=== PATIENT | female | born 1965 | race Caucasian/White ===

== ENCOUNTER 2017-09-03 15:48 | Emergency (ER) | payer BC ==
[~2017-09-03] VITALS: Ht 167.6 cm; Wt 63.5 kg
[2017-09-03 17:33] LABS: BASOPHILS % (AUTO) 0.5 % (0.0-2.0); EOSINOPHILS # (AUTO) 0.1 K/uL (0.0-0.7); HEMATOCRIT 37.2 % (31.2-41.9); HEMOGLOBIN 12.8 g/dL (10.9-14.3); LYMPHOCYTES # (AUTO) 1.4 K/uL (20.0-40.0); LYMPHOCYTES % (AUTO) 17.7 % (20.5-51.5); MEAN CORPUSCULAR HEMOGLOBIN 29.7 uug (24.7-32.8); MEAN CORPUSCULAR HGB CONC 34 g/dL (32.3-35.6); MEAN CORPUSCULAR VOLUME 86.4 fL (75.5-95.3); MONOCYTES # (AUTO) 0.9 K/uL (2.0-10.0); NEUTROPHILS # (AUTO) 5.7 K/uL (1.8-8.9); NEUTROPHILS % (AUTO) 69.8 % (38.5-71.5); PLATELET COUNT (AUTO) 278 K/uL (179-408); WHITE BLOOD COUNT (AUTO) 8.2 K/uL (3.8-11.8)
[2017-09-03 17:40] LABS: CREATININE 0.8 mg/dL (0.6-1.3); POTASSIUM 4.1 mmol/L (3.5-5.1)
[2017-09-03 17:46] LABS: BILIRUBIN,TOTAL 0.4 mg/dL (0.2-1.0); TOTAL PROTEIN, SERUM 8.8 g/dL (6.4-8.2)
--- NOTE | 2017-09-03 18:30 | NUR ---
Patient discharged to home in stable conditon. Written and verbal after care instructions given to patient and patient's adult daughter. Patient and family verbalized understanding of instructions. Patient left ER with brisk steady gait.
== END 2017-09-03 18:31 | disposition home or self-care (01) ==
LOC: ER 15:50
DX: S29.011A Strain of muscle and tendon of front wall of thorax, initial encounter (principal); S39.012A Strain of muscle, fascia and tendon of lower back, initial encounter; J40 Bronchitis, not specified as acute or chronic; X58.XXXA Exposure to other specified factors, initial encounter; Y93.89 Activity, other specified; Y92.89 Other specified places as the place of occurrence of the external cause; Y99.8 Other external cause status
CPT/HCPCS: 36415; 70030-TC; 71045; 85025; 93005; A4663

== ENCOUNTER 2020-08-04 06:37 | Emergency (ER) | payer MEDICAID, OTHER ==
[~2020-08-04] VITALS: Ht 157.5 cm; Wt 54.4 kg
--- NOTE | 2020-08-04 06:50 | NUR ---
Patient ambulated with steady gait. Patient did not start complaining about her pain until she ended inside the patient and appears to be in extreme discomfort. Patient A/Ox4, Speech is clear, speaks in complete sentences. Patient came for c/o chest pressure + SOB, states she woke up short of breath just prior to arrival.
[2020-08-04] MEDS ORDERED: ASPIRIN 325 MG TABLET ONE (06:55)
[2020-08-04] MEDS ORDERED: ASPIRIN 325 MG TABLET PO ONE (07:00)
[2020-08-04] MEDS ORDERED: IV NORMAL SALINE 250 ML BAG IV ONE (07:00)
[2020-08-04] MEDS ORDERED: NITROGLYCERIN 0.4 MG/TAB BOTTLE SL ONE ×2 (07:00→07:01)
[2020-08-04] MEDS ORDERED: MORPHINE SULFATE 2 MG/1 ML DISP.SYRIN IV ONE (07:15)
[2020-08-04] MEDS ORDERED: ONDANSETRON 4 MG/2 ML VIAL IV ONE (07:15)
--- NOTE | 2020-08-04 07:18 | NUR ---
Handoff report given to TYESHA Mays for continuity of care.
[2020-08-04 07:20] LABS: BASOPHILS % (AUTO) 0.4 % (0.0-2.0); EOSINOPHILS # (AUTO) 0.2 K/uL (0.0-0.7); EOSINOPHILS % (AUTO) 2.1 % (0.0-7.0); HEMATOCRIT 37.6 % (31.2-41.9); HEMOGLOBIN 12.9 g/dL (10.9-14.3); LYMPHOCYTES # (AUTO) 2.5 K/uL (20.0-40.0); MEAN CORPUSCULAR HEMOGLOBIN 30.2 uug (24.7-32.8); MEAN CORPUSCULAR HGB CONC 34 g/dL (32.3-35.6); MEAN CORPUSCULAR VOLUME 88.1 fL (75.5-95.3); MONOCYTES # (AUTO) 1.1 K/uL (2.0-10.0); MONOCYTES % (AUTO) 9.6 % (0.0-11.0); NEUTROPHILS # (AUTO) 7.3 K/uL (1.8-8.9); NEUTROPHILS % (AUTO) 65.9 % (38.5-71.5); PLATELET COUNT (AUTO) 295 K/uL (179-408); RED BLOOD CELL COUNT(AUTO) 4.27 MIL/uL (3.63-4.92); WHITE BLOOD COUNT (AUTO) 11.2 K/uL (3.8-11.8)
--- NOTE | 2020-08-04 07:20 | NUR ---
Pt recieved inbed, pt c/o chest/abd pain, 03/30. MD aware.
[2020-08-04] MEDS ORDERED: MORPHINE SULFATE 4 MG/1 ML DISP.SYRIN ONE ×2 (07:25)
[2020-08-04] MEDS ORDERED: IV NORMAL SALINE 1000 ML BAG IV ONE (07:30)
[2020-08-04] MEDS ORDERED: MORPHINE SULFATE 4 MG/1 ML DISP.SYRIN IV ONE ×2 (07:30→08:30)
[2020-08-04] MEDS ORDERED: ONDANSETRON 4 MG/2 ML VIAL ONE (07:34)
[2020-08-04 07:41] LABS: BILIRUBIN,TOTAL 0.3 mg/dL (0.2-1.0); CREATININE 0.8 mg/dL (0.6-1.3); POTASSIUM 3.3 mmol/L (3.5-5.1); TOTAL PROTEIN, SERUM 8.6 g/dL (6.4-8.2)
--- NOTE | 2020-08-04 07:50 | NUR ---
Pt states her mid abdomen hurts, Dr bravo made aware and orders received.
[2020-08-04] MEDS ORDERED: PANTOPRAZOLE SODIUM 40 MG VIAL ONE (07:54)
[2020-08-04] MEDS ORDERED: MAG HYDROX/AL HYDROX/SIMETH 30 ML LIQUID UDC ONE (07:58)
[2020-08-04] MEDS ORDERED: LIDOCAINE VISCUS 2% 15 ML UDC ONE (07:58)
[2020-08-04] MEDS ORDERED: PANTOPRAZOLE SODIUM 40 MG VIAL IV ONE (08:00)
[2020-08-04] MEDS ORDERED: MAG HYDROX/AL HYDROX/SIMETH 30 ML LIQUID UDC PO ONE (08:00)
[2020-08-04] MEDS ORDERED: LIDOCAINE VISCUS 2% 15 ML UDC MM ONE (08:00)
--- NOTE | 2020-08-04 08:16 | NUR ---
Check BP 103/66, HR 66 on right. BP on LT 108/69, HR 65., Per MD request.
[2020-08-04] MEDS ORDERED: MORPHINE SULFATE 2 MG/1 ML DISP.SYRIN ONE ×2 (08:21→08:22)
--- NOTE | 2020-08-04 08:29 | NUR ---
Pt signed consent for IV contrasted CT, placed in the chart.
[2020-08-04] MEDS ORDERED: IV NORMAL SALINE 250 ML IV ONE (08:37)
[2020-08-04] MEDS ORDERED: IOHEXOL 350 100 ML INFUS..BTL ONE ×2 (08:37→09:21)
[2020-08-04] MEDS ORDERED: SWABABLE VALVE TRANSFER SET EA MC ONE (08:37)
[2020-08-04] MEDS ORDERED: HYDROMORPHONE 1 MG/1 ML DISP.SYRIN IV ONE ×2 (08:45→12:00)
[2020-08-04] MEDS ORDERED: HYDROMORPHONE 1 MG/1 ML DISP.SYRIN ONE ×2 (08:56→12:05)
--- NOTE | 2020-08-04 08:57 | NUR ---
Pt out of Er for CT.
--- NOTE | 2020-08-04 09:45 | NUR ---
Pt back from Ct, states pain is better. Assissted to Bedside commode.
--- NOTE | 2020-08-04 09:59 | NUR ---
Urine collected and sent to LAB.
[2020-08-04 10:03] LABS: *BILIRUBIN,URIN NEGATIVE (NEGATIVE); *BLOOD, URINE 1+ (NEGATIVE); *CLARITY,URINE CLEAR (CLEAR); *COLOR,URINE YELLOW (YELLOW); *KETONES,URINE NEGATIVE (NEGATIVE); *UROBILINOGEN,URINE 0.2 E.U./dl (NORMAL); LEUKOCYTE ESTERASE ,URINE TRACE (NEGATIVE); NITRITE, URINE NEGATIVE (NEGATIVE); UGLUCOSE NEGATIVE (NEGATIVE)
--- NOTE | 2020-08-04 10:08 | NUR ---
Placed a call to [facility] for tx, No bes available.
--- NOTE | 2020-08-04 10:18 | NUR ---
Called [facility] for transfer. No IR avail.
[2020-08-04 10:19] LABS: BASOPHILS % (AUTO) 0.1 % (0.0-2.0); EOSINOPHILS % (AUTO) 0.1 % (0.0-7.0); HEMATOCRIT 30.9 % (31.2-41.9); HEMOGLOBIN 10.4 g/dL (10.9-14.3); LYMPHOCYTES # (AUTO) 0.8 K/uL (20.0-40.0); LYMPHOCYTES % (AUTO) 6.4 % (20.5-51.5); MEAN CORPUSCULAR HEMOGLOBIN 29.9 uug (24.7-32.8); MEAN CORPUSCULAR HGB CONC 34 g/dL (32.3-35.6); MEAN CORPUSCULAR VOLUME 88.3 fL (75.5-95.3); MONOCYTES # (AUTO) 0.9 K/uL (2.0-10.0); MONOCYTES % (AUTO) 7.5 % (0.0-11.0); NEUTROPHILS # (AUTO) 10.5 K/uL (1.8-8.9); NEUTROPHILS % (AUTO) 85.9 % (38.5-71.5); PLATELET COUNT (AUTO) 212 K/uL (179-408); RED BLOOD CELL COUNT(AUTO) 3.49 MIL/uL (3.63-4.92); WHITE BLOOD COUNT (AUTO) 12.3 K/uL (3.8-11.8)
--- NOTE | 2020-08-04 10:20 | NUR ---
Placed a call to [facility] for transfer, no interventional Radiology avail.
--- NOTE | 2020-08-04 10:30 | NUR ---
Placed a call to [facility], and spoke to Ora and bed is at capacity.
--- NOTE | 2020-08-04 10:36 | NUR ---
CALLED CHAYO KAUR, WAS TRANSFERED TO [facility], THEY WILL CALL BACK IF AVAILABLE
--- NOTE | 2020-08-04 10:40 | NUR ---
CALLED DR. KERR, DR. ONOFRE SPOT WASHER, CALLED BACK AND TALKED TO DR. KAUR.
--- NOTE | 2020-08-04 10:45 | NUR ---
CALLED [facility], TALKED TO RENZO, RENZO SAID THAT E SHOULD CALL INSURANCE AND GET THE AUTHORIZATION, NOTIFIED THE ORDER PICKER/ASSEMBLER TO CALL INSURANCE FOR AUTHORIZATION.
--- NOTE | 2020-08-04 10:45 | NUR ---
Placed a call to [facility], No DUTCH king.
--- NOTE | 2020-08-04 10:50 | NUR ---
ALTAF CHARLES TALKED TO DR. RANDALL X 2 OVER THE PHONE.
--- NOTE | 2020-08-04 10:50 | NUR ---
CALLED [facility], TALKED TO ARUN.
--- NOTE | 2020-08-04 10:50 | NUR ---
Placed a called to [facility], NO IR trailhead construction worker or available.
--- NOTE | 2020-08-04 10:55 | NUR ---
ALTAF CHARLES TALKED TO DR. CÁRDENAS OVER THE PHONE
--- NOTE | 2020-08-04 11:00 | NUR ---
Placed a call to [facility] and spoke to ER charge nurse, Dr Zacarias spoke to theirr ER Md. No IR avail.
--- NOTE | 2020-08-04 11:18 | NUR ---
blood transfusion started. witnessed with Abdiel Thompson
--- NOTE | 2020-08-04 11:22 | NUR ---
Placed a call to [facility] for transfer. Er MD spoke to Er Md at the facility and pt was accepted for transfer. [facility], no transfer avilable to [facility].
--- NOTE | 2020-08-04 11:30 | NUR ---
Called to [facility] for tx , no availibility at this time.
--- NOTE | 2020-08-04 11:55 | NUR ---
JULIA WHITE, ER DIRECTOR, OKED THE AMBULANCE TRANSER EVEN IF THE INSURANCE AUTHORIZATION IS STILL PENDING.
--- NOTE | 2020-08-04 11:57 | NUR ---
[facility], ETA [phone], if insurance provide authorization.
--- NOTE | 2020-08-04 12:00 | NUR ---
BLOOD TRANSFUSION COMPLETED. PT TOLERATED WELL.
--- NOTE | 2020-08-04 12:01 | NUR ---
ARSENIO FROM [facility] CALLED TO GET THE UPDATE.
--- NOTE | 2020-08-04 12:05 | NUR ---
Called [facility], awaiting insurance authorization.
--- NOTE | 2020-08-04 12:13 | NUR ---
IV removed. Catheter intact and site benign. Pressure and 4x4 gauze applied to site. No bleeding noted.Patient does not wish to proceed with medical care recommended by (Deann). Patient given information related to possible complications, up to and including , which could occur as a result of leaving the hospital at this time. Patient verbalizes understanding of risks involved due to leaving against medical advice. Patient has signed AMA form.
--- NOTE | 2020-08-04 12:14 | NUR ---
Pt left ER accompained by and son.
--- NOTE | 2020-08-04 12:33 | NUR ---
Young menjivar in ED - 08/04/20 at 1235 by KARIN [facility], No ALS trnasfer for today.
[2020-08-04 12:42] VITALS: BP 127/69
[2020-08-04 13:06] LABS: BACTERIA,URINE NONE SEEN /HPF (NONE SEEN); SQUAMOUS EPITHELIAL CELL,UR FEW /HPF (NONE SEEN); WBC,URINE 0-3 /HPF (0-3)
[2020-08-05] MEDS ORDERED: MORPHINE SULFATE 4 MG/1 ML DISP.SYRIN IV ONE (08:20)
== END 2020-08-04 12:43 | disposition left against medical advice (07) ==
LOC: ER 06:41
DX: N28.89 Other specified disorders of kidney and ureter (principal); D17.71 Benign lipomatous neoplasm of kidney; R07.9 Chest pain, unspecified; Z20.822 Contact with and (suspected) exposure to COVID-19; R79.1 Abnormal coagulation profile
CPT/HCPCS: 36415; 71045; 71260; 74177; 80053; 81001; 82248; 82550; 82728; 83605 ×2; 83615; 83690; 83880; 84484; 85025 ×2; 85379; 85730; 86140; 86850; 86900; 86901; 86920; 87040 ×2; 87086; 87426; 93005 ×2; 96361; 96374; 96375; 96376; 99291; 99292; C9113; J1170 ×2; J2270 ×4; J2405; Q9967 ×2; 70030-TC; A4663; J7030; J7050